=== PATIENT | female | born 1945 | race Asian ===

== ENCOUNTER 2024-02-27 07:02 | Emergency (ER) | payer OTHER ==
[~2024-02-27] VITALS: Ht 157.5 cm; Wt 46.8 kg
[2024-02-27 07:54] VITALS: BP 161/70; PULSE 87; RESP 16; TEMP 97; O2SAT 99
[2024-02-27] MEDS ORDERED: ACET-1080 PO (08:33)
[2024-02-27] MEDS: ACETAMINOPHEN 500 MG TAB PO ONE (08:36)
== END 2024-02-27 08:42 | disposition home or self-care (01) ==
LOC: ER 07:02
DX: S29.011A Strain of muscle and tendon of front wall of thorax, initial encounter (principal); I10 Essential (primary) hypertension; W22.8XXA Striking against or struck by other objects, initial encounter; Y93.89 Activity, other specified; Y92.89 Other specified places as the place of occurrence of the external cause; Y99.8 Other external cause status
CPT/HCPCS: 71101